=== PATIENT | male | born 1990 | race Hispanic/Latino ===

== ENCOUNTER 2018-08-10 12:31 | Emergency (ER) | payer BC, OTHER ==
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
== END 2018-08-10 14:52 | disposition home or self-care (01) ==
LOC: ERS 12:31
DX: S00.03XA Contusion of scalp, initial encounter (principal); V03.99XA Pedestrian with other conveyance injured in collision with car, pick-up truck or van, unspecified whether traffic or nontraffic accident, initial encounter
CPT/HCPCS: 70450; 72072; 72100

== ENCOUNTER 2018-09-08 08:15 | Emergency (ER) | payer OTHER ==
--- NOTE | 2018-09-08 09:39 | RAD ---
XR Thoracic Spine 3 V STANDARD History: [Pain] Comparison: Radiographs July 2018 Findings: No acute fracture or malalignment. Vertebral body heights and disc spaces are maintained. V isualized ribs are normal. Impression: No acute fracture or malalignment.
== END 2018-09-08 10:13 | disposition home or self-care (01) ==
LOC: ERS 08:15
DX: M54.6 Pain in thoracic spine (principal)
CPT/HCPCS: 72072